=== PATIENT | female | born 1965 ===

== ENCOUNTER 2024-10-23 06:27 | Day surgery (SDC) | payer OTHER, SELFPAY | END 2024-10-23 16:56 | disposition home or self-care (01) | LOC: GI 06:27 | PROVIDERS: ATTENDING PHYSICIAN Internal Medicine Gastroenterology | DX: Z12.11 Encounter for screening for malignant neoplasm of colon (principal); Z83.719 Family history of colon polyps, unspecified | CPT/HCPCS: G0105 ==